=== PATIENT | female | born 1985 | race Caucasian/White ===

== ENCOUNTER 2020-10-11 07:18 | Inpatient (IN) | payer OTHER, MEDICAID ==
[~2020-10-11 07:18] MED LIST: Dexamethasone 4 MG/ML SDV ONE; Glycopyrrolate 0.2 MG/ML 5 ML MDV ONE; Neostigmine Methylsulfate 1 MG/ML 5 ML Syringe ONE; Ondansetron 4 MG/2 ML SDV ONE; Propofol 200 MG/20 ML SDV ONE; Rocuronium 50 MG/5 ML Vial ONE; Succinylcholine 200 MG/10 ML MDV ONE; cefOXitin 2 GM Vial ONE; fentaNYL 250 MCG/5 ML SDV ONE
[2020-10-11] MEDS ORDERED: Acetaminophen 500 MG Tab PO ONE (07:45)
[2020-10-11] MEDS ORDERED: cefOXitin 2 GM in Sodium Chloride 0.9% 50 ML IV ONE (07:45)
[2020-10-11] MEDS ORDERED: Scopolamine 1.5 MG Transdermal Patch TOP SCH (07:45)
[2020-10-11] MEDS ORDERED: Celecoxib 200 MG Cap PO ONE (07:45)
[2020-10-11 08:03] LABS: HEMOGLOBIN A1C 10.2 % (4.5-6.2)
[2020-10-11] MEDS ORDERED: Dextrose 5%-Lactated Ringers 1,000 ML IV SCH ×2 (08:45→12:15)
[2020-10-11] MEDS ORDERED: CHECK SCOPALAMINE PATCH TOP SCH (09:00)
[2020-10-11] MEDS ORDERED: fentaNYL 250 MCG/5 ML SDV ONE ×2 (09:10→09:44)
[2020-10-11] MEDS ORDERED: Magnesium Sulfate 9 GM in Sodium Chloride 0.9% 250 ML IV ONE (09:30)
[2020-10-11] MEDS ORDERED: Ketamine 500 MG/5 ML MDV IV SCH (09:30)
[2020-10-11] MEDS ORDERED: Ketamine 50 MG in Sodium Chloride 0.9% 49.5 ML IV SCH (09:30)
[2020-10-11] MEDS ORDERED: Rocuronium 50 MG/5 ML Vial ONE (10:29)
[2020-10-11] MEDS ORDERED: Lactated Ringers 1,000 ML ONE ×2 (10:53)
[2020-10-11] MEDS ORDERED: Mupirocin Oint 22 GM Tube ONE (11:30)
[2020-10-11] MEDS ORDERED: Sugammadex Sodium 200 MG/2 ML VIAL ONE (11:53)
[2020-10-11] MEDS ORDERED: Glucagon,Human Recombinant 1 MG Vial IM PRN (12:00)
[2020-10-11] MEDS ORDERED: 50% Dextrose in Water 50 ML Syringe IVPUSH PRN (12:00)
[2020-10-11] MEDS ORDERED: Insulin Lispro 100 Unit/ML 3 ML KwikPen SUBCUT ONE (12:10)
[2020-10-11] MEDS ORDERED: Magnesium Sulfate 3.4 GM in Sodium Chloride 0.9% 250 ML IV ONE (12:15)
[2020-10-11] MEDS ORDERED: Cyclobenzaprine 10 MG Tab PO PRN (12:15)
[2020-10-11] MEDS ORDERED: Pantoprazole 40 MG Vial IVPUSH SCH (13:00)
[2020-10-11] MEDS ORDERED: Labetalol 20 MG/4 ML Syringe IVPUSH PRN (13:00)
[2020-10-11] MEDS ORDERED: Calcium Gluconate 10% 1 GM/10 ML SDV IVPUSH PRN (13:00)
[2020-10-11] MEDS ORDERED: Metoclopramide 10 MG/2 ML SDV IVPUSH PRN (13:00)
[2020-10-11] MEDS ORDERED: HYDROmorphone 0.5 MG/0.5 ML Syringe IVPUSH PRN (13:00)
[2020-10-11] MEDS ORDERED: Albuterol/Ipratropium 3.0-0.5 MG/3 ML Neb Soln INH PRN (13:00)
[2020-10-11] MEDS ORDERED: Acetaminophen 500 MG Tab PO PRN (13:00)
[2020-10-11] MEDS ORDERED: Ondansetron 4 MG/2 ML SDV IVPUSH PRN (13:00)
[2020-10-11] MEDS ORDERED: diphenhydrAMINE 50 MG/ML SDV IVPUSH PRN (13:00)
[2020-10-11] MEDS: HYDROmorphone 1 MG/ML Syringe IV PRN ×3 (13:30→16:18)
[2020-10-11] MEDS: cefOXitin 2 GM in Sodium Chloride 0.9% 50 ML IV SCH ×2 (15:17→20:57)
[2020-10-11] MEDS ORDERED: MVI, Adult with Vitamin K 10 ML, Thiamine 200 MG, Zinc/Copper/Manganese/Selenium 1 ML i... IV SCH ×4 (16:00)
[2020-10-11] MEDS: Heparin Sodium 5,000 Units/ML Vial SUBCUT SCH ×2 (16:07→23:59)
[2020-10-11] MEDS: metFORMIN 500 MG Tab PO SCH ×2 (16:08→16:15)
[2020-10-11] MEDS: Acetaminophen 500 MG Tab PO SCH ×2 (16:08→23:59)
[2020-10-11] MEDS: Insulin Lispro 100 Unit/ML 3 ML KwikPen SUBCUT PRN ×2 (16:40→21:16)
[2020-10-11] MEDS: hydrOXYzine HCL 100 MG/2 ML SDV IM PRN (17:50)
[2020-10-11] MEDS: Venlafaxine 75 MG Cap.ER PO SCH (20:57)
[2020-10-11] MEDS: oxyCODONE 5 MG Tab PO PRN (20:58)
[2020-10-11] MEDS ORDERED: Insulin Glargine,Human Rec. Analog 100 Units/ML 3 ML Pen SUBCUT ONE (21:00)
[2020-10-11] MEDS: Lactated Ringers 1,000 ML IV SCH (22:02)
[2020-10-12] MEDS: hydrOXYzine HCL 100 MG/2 ML SDV IM PRN (00:07)
[2020-10-12] MEDS: cefOXitin 2 GM in Sodium Chloride 0.9% 50 ML IV SCH ×4 (03:47→20:49)
[2020-10-12] MEDS: oxyCODONE 5 MG Tab PO PRN (04:00)
[2020-10-12] MEDS ORDERED: Iopamidol 612 MG/ML 50 ML SDV PO STA (04:07)
[2020-10-12] MEDS: Lactated Ringers 1,000 ML IV SCH ×2 (05:02→13:31)
[2020-10-12] MEDS ORDERED: Ondansetron 4 MG Tab.DIS PO PRN (07:19)
[2020-10-12] MEDS: metFORMIN 500 MG Tab PO SCH ×2 (07:21→16:31)
[2020-10-12] MEDS: Acetaminophen 500 MG Tab PO SCH ×2 (07:22→15:20)
[2020-10-12] MEDS: Heparin Sodium 5,000 Units/ML Vial SUBCUT SCH ×2 (07:22→15:20)
[2020-10-12] MEDS: Levothyroxine 50 MCG Tab PO SCH (07:22)
[2020-10-12] MEDS ORDERED: hydrOXYzine HCl 25 MG Tab PO PRN (07:24)
--- NOTE | 2020-10-12 08:52 | PN ---
DATE OF SERVICE: 10/12/2020 SUBJECTIVE: Hellen is postoperative day #1. Her upper GI was normal. Her oral intake was 540, output 2200. ANGUS drain put out 70 mL of a light pink drainage. Last blood sugar was 275. She did take Lantus 30 units and part of her metformin. REVIEW OF SYSTEMS: Remainder of review of systems negative for any pertinent positives and negatives. OBJECTIVE: GENERAL: Hellen Cummins is a pleasant 35-year-old female. She is resting comfortably in bed. VITAL SIGNS: TPR is 98.2, 95, 18, blood pressure 166/87. HEENT: Negative. NECK: Supple. HEART: Regular rate and rhythm. LUNGS: Clear. ABDOMEN: Dressings dry and intact. Abdominal binder is on. EXTREMITIES: Without peripheral edema. ASSESSMENT: Diagnostic laparoscopy with laparoscopic sleeve gastrectomy and Fidel-Cut needle liver biopsy. POSTOPERATIVE DIAGNOSES: Morbid obesity with marked hepatomegaly, obscuring duodenum. Date of procedure: 10/11/2020. Surgeon: Brian Patel MD. PLAN: 1. Discontinue D5 LR IV. 2. Change IV solution to lactated Ringer's 100 mL/h. 3. Discontinue Finley. 4. Continue metformin. Encouraged to split, crush. 5. 10 units of Lantus at bedtime. 6. Victoza 1.2 units daily. 7. May shower. 8. Atarax 50 mg q.4 hours p.r.n. pain. 9. Communication order: 3 med cups per hour. 10.Continue use of incentive spirometer and ambulation. 11.We will evaluate p.r.n. or in a.m. Shannan Whiting PA-C /[id number]
[2020-10-12] MEDS: Celecoxib 200 MG Cap PO SCH ×2 (09:30→20:41)
[2020-10-12] MEDS: Liraglutide (rDNA Origin) 0.6 MG/0.1 ML 3 ML Pen SUBCUT SCH (09:30)
[2020-10-12] MEDS: Mupirocin Oint 22 GM Tube TOP SCH ×2 (09:30→20:41)
[2020-10-12] MEDS: SCOPOLAMINE PATCH CHECK TOP SCH (10:13)
[2020-10-12] MEDS: Insulin Lispro 100 Unit/ML 3 ML KwikPen SUBCUT PRN ×2 (10:30→16:30)
[2020-10-12] MEDS: Pantoprazole 40 MG Delayed-Release Granules 1 Packet PO SCH (15:35)
[2020-10-12] MEDS ORDERED: MVI, Adult with Vitamin K 10 ML, Thiamine 200 MG, Zinc/Copper/Manganese/Selenium 1 ML i... IV SCH ×4 (16:00)
[2020-10-12] MEDS: Venlafaxine 75 MG Cap.ER PO SCH (20:42)
[2020-10-12] MEDS ORDERED: Insulin Glargine,Human Rec. Analog 100 Units/ML 3 ML Pen SUBCUT SCH (21:00)
[2020-10-13] MEDS: Heparin Sodium 5,000 Units/ML Vial SUBCUT SCH ×3 (00:32→16:43)
[2020-10-13] MEDS: Acetaminophen 500 MG Tab PO SCH ×3 (00:33→16:43)
[2020-10-13] MEDS: Lactated Ringers 1,000 ML IV SCH (05:20)
[2020-10-13] MEDS: metFORMIN 500 MG Tab PO SCH ×2 (08:52→16:43)
[2020-10-13] MEDS: Celecoxib 200 MG Cap PO SCH (08:52)
[2020-10-13] MEDS: Liraglutide (rDNA Origin) 0.6 MG/0.1 ML 3 ML Pen SUBCUT SCH (08:53)
[2020-10-13] MEDS: Levothyroxine 50 MCG Tab PO SCH (08:53)
[2020-10-13] MEDS ORDERED: Cyanocobalamin (Vitamin B12) 1,000 MCG/ML SDV IM ONE (09:00)
--- NOTE | 2020-10-13 09:31 | CR ---
[facility] HISTORY: Postbariatric surgery FINDINGS: Patient swallowed water-soluble contrast. Upright views of the abdomen show no evidence of obstruction. There is a small focus of contrast persisting in the epigastric region near the GE junction. This may represent a mucosal fold. There is contrast in the antrum of the stomach. There is a surgical drain in left upper quadrant IMPRESSION: Status post gastric surgery No obstruction seen Small persistent collection of barium near the GE junction likely a small fold in the mucosa near the surgical site. There is contrast in the antrum of the stomach
--- NOTE | 2020-10-13 09:44 | DISCH ---
ADMISSION DIAGNOSES: 1. Morbid obesity. 2. Body mass index 70.9. 3. Gastroesophageal reflux disease. 4. Diabetes type 2, uncontrolled. 5. Hypothyroidism. 6. Anxiety. 7. Depression. 8. Borderline personality. DISCHARGE DIAGNOSES: Diagnostic laparoscopy with: 1. Laparoscopic sleeve gastrectomy. 2. Fidel-Cut needle liver biopsy. POSTOPERATIVE DIAGNOSES: Morbid obesity with marked hepatomegaly obscuring duodenum. Date of procedure: 10/11/2020. Surgeon: Brian Patel MD. HISTORY: Hellen Cummins is a pleasant 35-year-old female with longstanding history of morbid obesity and increasing comorbidities. After preoperative evaluation and discussion of possible risks and possible complications, she wished to proceed with surgical procedure. HOSPITAL COURSE: Hellen had her surgery on 10/11/2020. She had no operative complications. On postoperative day #1, an upper GI was done and it was negative for any leakage. She was started on step 2 gastric bypass diet. Vital signs were stable. She received adequate instructions and she was able to be discharged to home without any complications. PHYSICAL EXAMINATION: GENERAL: Hellen is a pleasant 35-year-old female. VITAL SIGNS: Height 5 feet 6 inches, weight is 439 pounds 6 ounces, BMI 70.9. TPR is 98.2, 87, 18, blood pressure 164/92. HEENT: Negative. NECK: Supple. HEART: Regular rate and rhythm. LUNGS: Clear. ABDOMEN: Trocar sites look good, healing well. Sutures intact. Abdominal binder is on. EXTREMITIES: Without peripheral edema. DISPOSITION: Discharged to home. CONDITION: Stable and improving. HOME MEDICATIONS: 1. Victoza 1.2 mg subcu daily, 3 pens, 1 year refill. 2. Zofran ODT 4 mg p.o. q.4 hours p.r.n. nausea, #30. 3. She is to resume Tylenol 1000 mg p.o. q.8 hours scheduled. 4. Venlafaxine 75 mg p.o. b.i.d. 5. Metformin 1000 mg p.o. b.i.d. 6. Victoza 1.2 mg subcu daily. 7. Levothyroxine 50 mcg p.o. daily. 8. Pepcid 40 mg p.o. daily. 9. Celebrex 200 mg p.o. b.i.d. 10.Tylenol 1000 mg p.o. q.8 hours p.r.n. pain. FOLLOWUP APPOINTMENT: With Shannan Whiting PA-C, 10/24/2020 at 11 a.m. DIET: Step 2 gastric bypass diet with no cereal until 11/12/2020, 65 g of protein in 64 ounces of fluid. ACTIVITY: No lifting greater than 10 pounds for 2 weeks. Walk inside your home 6 times daily. Driving: Do not drive for 1 week or while on narcotic medication. Shower/bathing: May shower. DISCHARGE INSTRUCTIONS: Notify provider if any fever, increased pain, swelling, redness, drainage, nausea, or vomiting. Wound incision care; keep site clean and dry. Wear abdominal binder for 2 weeks and then as needed. SPECIAL INSTRUCTION: 1. Use incentive spirometer 4 times a day and bring record of blood sugars to clinic appointment. Call clinic on 10/17/2020 with blood sugar readings. 2. Walk for 3 minutes every hour you are in the car to avoid blood clots in your legs. /[id number]
[2020-10-13] MEDS: Mupirocin Oint 22 GM Tube TOP SCH (10:00)
[2020-10-13] MEDS: SCOPOLAMINE PATCH CHECK TOP SCH (10:01)
[2020-10-13] MEDS: Pantoprazole 40 MG Delayed-Release Granules 1 Packet PO SCH (16:43)
--- NOTE | 2020-10-17 08:25 | OR ---
DATE OF PROCEDURE: 10/11/2020 SURGEON: Brian Patel MD PREOPERATIVE DIAGNOSIS: Morbid obesity. POSTOPERATIVE DIAGNOSIS: Morbid obesity with marked hepatomegaly obscuring the duodenum. OPERATIVE PROCEDURES: Diagnostic laparoscopy with: 1. Laparoscopic sleeve gastrectomy (as first stage of duodenal switch) (63814). 2. Fidel-Cut needle liver biopsy (18631). ANESTHESIA: General. NET REPAIRER: Shannan Whiting PA-C. INDICATIONS FOR PROCEDURE: This is a 35-year-old female presenting with longstanding morbid obesity and increasingly significant comorbidities. After preoperative evaluation and discussion, she wished to proceed with a duodenal switch. She is aware that particularly in view of her quite high BMI, that the procedure may end up needing to be staged with a sleeve gastrectomy performed first at this point and later on the duodenal ileostomy done as a later procedure to complete the duodenal switch. Potential risks of the procedure per se including bleeding, infection, leak from GI tract, staple lines, or anastomosis as well as possibility of cardiopulmonary, septic, or hemorrhagic complications leading to were discussed, and the patient wishes to proceed. DESCRIPTION OF PROCEDURE: The patient was taken to the operating room. After general endotracheal anesthesia was induced, she was placed in a lithotomy position. Finley catheter was inserted and the abdomen prepped and draped. At 20 cm inferior, 5 cm left of the xiphoid process, a transverse incision was made and the peritoneal cavity entered under direct vision with an Optiview trocar, inflated to 15 mmHg pressure with CO2. Laparoscope was then reinserted, no underlying trocar insertion site injuries were seen. Bilateral transversus abdominis plane blocks were then placed and 6 additional trocars were placed across the upper mid abdomen. The patient was noted to have markedly enlarged liver which was grossly fatty infiltrated. Fidel-Cut needle biopsy was obtained from left lobe of liver. Minimal bleeding from the biopsy sites was controlled with electrocautery. At this point, the small bowel was identified at the ileocecal valve and traced back 300 cm proximal to that. This was noted to come up satisfactory to the level of the duodenum, i.e., was satisfactorily mobile at this point, therefore, complete procedure. However, it was noted that at this point that the liver came down to the extent that exposure of the duodenum would be difficult and somewhat overly high risk to complete the duodenoileostomy at this time. Given this, the decision was made to proceed now with a sleeve gastrectomy and later complete the duodenoileostomy. At this point, the liver was retracted anteriorly and the greater omentum was divided away from the greater curvature of the stomach with Harmonic scalpel. This dissection was then continued proximally to include the highest and posterior short gastric vessels and then extended distally to a point roughly 6 cm proximal to the pylorus. Some adhesions of stomach were then taken down as well with the Harmonic scalpel. The first 2 firings of sleeve gastrectomy were then accomplished with unreinforced JD black loads with care taken to avoid overtightening of the gastrectomy staple line at the level of the incisura angularis. The 32-[place] suction tube was then placed per Anesthesia orally and then positioned along the lesser curvature of the stomach and placed on suction. This acted as then a template for the remainder of the sleeve gastrectomy which was accomplished with a series of JD reinforced black loads. At that point, the staple line appeared to be intact. Fibrin sealant was applied to the length of the staple line with focus on the area of the esophagogastric junction. Omentum was then positioned up against the sleeve gastrectomy staple line as well aided with some 3-0 Vicryl sutures and a leak test was accomplished with injection of air into the sleeve gastrectomy while the pylorus was being compressed causing the gastrectomy to be distended. With the area being covered with antibiotic-containing saline solution, no leaks were identified and the orogastric tube was then removed. Stomach specimen was retrieved through the left lateral trocar site. A single Deon-Eckert drain was taken through the left lateral trocar site and positioned into the area of the esophagogastric junction, from there up into the splenic fossa. The trocars were removed and peritoneal cavity deflated. Incisions were closed with 4-0 Vicryl skin stitch which was also used to fix the drain. The patient was taken to the recovery room in satisfactory condition. Physician certified dental assistant, Shannan Whiting, played an essential role in assisting in this case, helping to position the patient, retract structures as needed as well as suturing and cutting sutures when indicated. Her presence improved patient safety and decreased the operative time. Brain Patel MD /[id number]
== END 2020-10-13 20:30 | disposition home or self-care (01) | DRG 621 ==
LOC: JP.SDSSCHI 07:18 → JP.SDS 07:18 → EDSTATUS 08:15 → JP.MS 11:45
PROVIDERS: ADMIT Surgery; ATTEND Surgery
PROC: 0DB64Z3 Excision of Stomach, Percutaneous Endoscopic Approach, Vertical (ICD-10-PCS; principal; 2020-10-11)
PROC: 0FB24ZX Excision of Left Lobe Liver, Percutaneous Endoscopic Approach, Diagnostic (ICD-10-PCS; 2020-10-11)
DX: E66.01 Morbid (severe) obesity due to excess calories (principal); Z68.45 Body mass index [BMI] 70 or greater, adult; K21.9 Gastro-esophageal reflux disease without esophagitis; E11.65 Type 2 diabetes mellitus with hyperglycemia; E03.9 Hypothyroidism, unspecified; R16.0 Hepatomegaly, not elsewhere classified; F90.9 Attention-deficit hyperactivity disorder, unspecified type; F41.8 Other specified anxiety disorders; G47.33 Obstructive sleep apnea (adult) (pediatric); K44.9 Diaphragmatic hernia without obstruction or gangrene; E78.1 Pure hyperglyceridemia; F32.5 Major depressive disorder, single episode, in full remission; Z87.891 Personal history of nicotine dependence; Z79.899 Other long term (current) drug therapy
CPT/HCPCS: 36415; 74240; 74240-26; 81025; 82962; 83036; 83735; 84100; 86850; 86900; 86901; 88307; 88313; 94762; A9270-GY; C9113; J0171; J0330; J0694; J1100; J1170; J1644; J1815; J1815-GY; J2405; J2704; J2710; J2795; J3010; J3410; J3411; J3420; J3475; J3490; J7050; J7120; J7121; Q9967